=== PATIENT | female | born 1985 | race Caucasian/White ===

== ENCOUNTER 2020-07-11 19:17 | Emergency (ER) | payer MEDICAID, OTHER ==
[2020-07-11] MEDS ORDERED: Sodium Chloride 0.9% 1,000 ML IV ONE ×2 (21:44→22:45)
[2020-07-11 22:07] LABS: BLOOD UREA NITROGEN,BUN 7 mg/dL (7.0-18.0); CARBON DIOXIDE,CO2 22.4 mmol/L (21.0-32.0); CHLORIDE,CL 100 mmol/L (98-107); GLUCOSE RANDOM 90 mg/dL (74-106); LIPASE 66 U/L (73-393); POTASSIUM,K 3.3 mmol/L (3.5-5.1); SODIUM,NA 136 mmol/L (136-145)
[2020-07-11] MEDS ORDERED: Ondansetron 4 MG/2 ML SDV IVPUSH ONE (22:45)
[2020-07-11] MEDS ORDERED: Acetaminophen 500 MG Tab PO ONE (22:45)
--- NOTE | 2020-07-11 23:02 | EDM.PDOC ---
ED HPI GENERAL MEDICAL PROBLEM - General Chief Complaint: Fever Stated Complaint: 10 WKS , FEVER, NAUSEA Time Seen by Provider: 07/11/20 21:35 Source of Information: Reports: Patient History Limitations: Reports: No Limitations - History of Present Illness INITIAL COMMENTS - FREE TEXT/NARRATIVE: HISTORY AND PHYSICAL: History of present illness: Sarabjit is a 34-year-old female who presents to the ED today with concern of generalized body aches, vomiting, low-grade fever of 99-100 at home, headache, and cough. Patient states she is approximately 10 weeks in gestation with a twin confirmed IUP with her OBGYN, Dr. Cordoba, at [facility]. Patient states that she took 1 g of Tylenol 5 hours prior to arrival to the ED but states that she vomited shortly after taking this. Patient states the generalized body aches is her main complaint and most bothersome to her. Patient states she is concerned about a COVID infection. Denies any vaginal bleeding, vaginal discharge. States she is having some lower abdominal pain which she is unsure if related to vomiting. Denies hematemesis or bilious emesis. Patient denies chest pain, shortness of breath, or cough. Denies neck stiff ness, change in vision, syncope, or near syncope. Denies abdominal pain, diarrhea, constipation, or dysuria. Has not noted any blood in urine or stool. Review of systems: As per history of present illness and below otherwise all systems reviewed and negative. Past medical history: As per history of present illness and as reviewed below otherwise noncontribut ory. Surgical history: As per history of present illness and as reviewed below otherwise noncontributory. Social history: See social history for further information Family history: As per history of present illness and as reviewed below otherwise noncontributory. Physical exam: General: Patient is alert, oriented, and in no acute distress. Patient sitting comfortably on exam table but anxious and tired appearing. Vitals stable with mild tachycardia without hypoxia. HEENT: Atraumatic, normocephalic, pupils equal and reactive bilaterally, negative for conjunctival pallor or scleral icterus, mucous membranes dry, throat clear, neck supple, nontender, trachea midline. No drooling or trismus noted. No meningeal signs. No hot potato voice noted. Lungs: Patient speaking clearly without breathlessness, no wheezing or stridor, no accessory muscle use or respiratory distress. Auscultation deferred due to current COV-ID 19 outbreak. Heart: Auscultation deferred due to current COV-ID 19 outbreak. Tachycardia on exam 110. Abdomen: Soft, nondistended, mild lower abdominal tenderness without guarding or rebound. Negative for masses or hepatosplenomegaly. Negative for costovertebral tenderness. Pelvis: Stable nontender. Genitourinary: Deferred. Rectal: Deferred. Skin: Intact, warm, dry. No lesions or rashes noted. Extremities: Atraumatic, negative for cords or calf pain. Neurovascular unremarkable. Neuro: Awake, alert, oriented. Cranial nerves II through XII unremarkable. Cerebellum unremarkable. Motor and sensory unremarkable throughout. Exam nonfocal. Notes: Patient is quite anxious on exam about positive COVID infection and concerned for her twin with concurrent COVID infection. She has not had any episodes of vomiting in the ED but expresses nausea and will evaluate for tolerance of PO intake following completion of therapeutics. Dr. Johnston has assumed care of patient at 23:00 pending ultrasound and reevaluation following therapeutics. He will follow remaining diagnostics and disposition for patient. Diagnostics: CBC, CMP, UA w culture, COVID-19, lipase, TVUS Therapeutics: NS, Zofran, Tylenol Impression: COVID-19 infection Intrauterine twin Vomiting Dehydration Plan: Definitive disposition and diagnosis as appropriate pending reevaluation and review of above. abdominal, body aches Pain Score (Numeric/FACES): 5 - Related Data Allergies Allergy/AdvReac Type Severity Reaction Status Date / Time azithromycin Allergy Nausea Verified 07/11/20 19:37 clindamycin Allergy Hives Verified 07/11/20 19:37 Penicillins Allergy Hives Verified 07/11/20 19:37 Home Meds: Home Meds No122/Iron/Folic Acid [ Multi Tablet] 1 each PO DAILY 06/16/17 [History] Past Medical History HEENT History: Reports: Impaired Vision Cardiovascular History: Reports: Other (See Below) Other Cardiovascular History: Tricupsid valve leaking 2016. Gastrointestinal History: Reports: Other (See Below) Other Gastrointestinal History: History of C-Diff. 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 - Infectious Disease History Infectious Disease History: Reports: Chicken Pox - Past Surgical History HEENT Surgical History: Reports: Oral Surgery Female Surgical History: Reports: D&C, Other (See Below) Other Female Surgeries/Procedures: Hysteroscopic uterine septoplasty in 2016. Musculoskeletal Surgical History: Reports: None Social & Family History - Family History HEENT: Reports: Hearing Impairment, Impaired Vision Cardiac: Reports: Bypass, Cardiomyopathy, High Cholesterol, Hypertension, Pa cemaker Respiratory: Reports: COPD GI: Reports: Celiac Disease, Other (See Below) Other GI Family History: C-diff. OBGYN: Reports: Musculoskeletal: Reports: Arthritis, Fibromyalgia Neurological: Reports: Neuropathy, Peripheral Endocrine/Metabolic: Reports: Hypothyroidism, Other (See Below) Other Endocrine/Metabolic Family History: Hoshimotos. - Tobacco Use Smoking Status *Q: Never Smoker - Caffeine Use Caffeine Use: Reports: Soda - Recreational Drug Use Recreational Drug Use: No ED ROS GENERAL - Review of Systems Review Of Systems: Comprehensive ROS is negative, except as noted in HPI. ED EXAM, GENERAL - Physical Exam Exam: See Below (see dictation) Course - Vital Signs Last Recorded V/S: Last Vital Signs Temp 98.9 F 07/12/20 00:51 Pulse 95 07/12/20 02:23 Resp 17 07/12/20 02:23 BP 122/71 07/12/20 02:23 Pulse Ox 98 07/12/20 02:23 - Orders/Labs/Meds Orders: Active Orders 24 hr Category Date Time Status CORONAVIRUS COVID-19 PCR PHL Stat Lab 07/11/20 21:43 Received Labs: Laboratory Tests 07/11/20 07/11/20 07/11/20 Range/Units 21:26 21:26 21:43 WBC 8.29 (4.0-11.0) K/uL RBC 4.92 (4.30-5.90) M/uL Hgb 14.2 (12.0-16.0) g/dL Hct 40.8 (36.0-46.0) % MCV 82.9 (80.0-98.0) fL MCH 28.9 (27.0-32.0) pg MCHC 34.8 (31.0-37.0) g/dL RDW Std Deviation 37.5 (28.0-62.0) fl RDW Coeff of Cherry 13 (11.0-15.0) % Plt Count 170 (150-400) K/uL MPV 10.50 (7.40-12.00) fL Neut % (Auto) 87.2 H (48.0-80.0) % Lymph % (Auto) 4.7 L (16.0-40.0) % Pope % (Auto) 7.7 (0.0-15.0) % Eos % (Auto) 0.2 (0.0-7.0) % Baso % (Auto) 0.2 (0.0-1.5) % Neut # (Auto) 7.2 H (1.4-5.7) K/uL Lymph # (Auto) 0.4 L (0.6-2.4) K/uL Pope # (Auto) 0.6 (0.0-0.8) K/uL Eos # (Auto) 0.0 (0.0-0.7) K/uL Baso # (Auto) 0.0 (0.0-0.1) K/uL Nucleated RBC % 0.0 /100WBC Nucleated RBCs # 0 K/uL Sodium 136 (136-145) mmol/L Potassium 3.3 L (3.5-5.1) mmol/L Chloride 100 (98-107) mmol/L Carbon Dioxide 22.4 (21.0-32.0) mmol/L BUN 7 (7.0-18.0) mg/dL Creatinine 0.8 (0.6-1.0) mg/dL Est Cr Clr Drug Dosing 113.27 mL/min Estimated GFR (MDRD) > 60.0 ml/min Glucose 90 (74-106) mg/dL Calcium 8.9 (8.5-10.1) mg/dL Total Bilirubin 0.3 (0.2-1.0) mg/dL AST 42 H (15-37) IU/L ALT 56 (14-63) IU/L Alkaline Phosphatase 88 (46-116) U/L Total Protein 7.8 (6.4-8.2) g/dL Albumin 3.5 (3.4-5.0) g/dL Globulin 4.3 H (2.6-4.0) g/dL Albumin/Globulin Ratio 0.8 L (0.9-1.6) Lipase 66 L (73-393) U/L Urine Color Urine Appearance Urine pH (5.0-8.0) Ur Specific Elberfeld (1.001-1.035) Urine Protein (NEGATIVE) mg/dL Urine Glucose (UA) (NEGATIVE) mg/dL Urine Ketones (NEGATIVE) mg/dL Urine Occult Blood (NEGATIVE) Urine Nitrite (NEGATIVE) Urine Bilirubin (NEGATIVE) Urine Urobilinogen (<2.0) EU/dL Ur Leukocyte Esterase (NEGATIVE) Urine RBC (0-2/HPF) Urine WBC (0-5/HPF) Ur Epithelial Cells (NONE-FEW) Urine Bacteria (NEGATIVE) Urine Mucus (NONE-MOD) SARS CoV-2 RNA Rapid ANGELINA POSITIVE H (NEGATIVE) 07/11/20 Range/Units 21:48 WBC (4.0-11.0) K/uL RBC (4.30-5.90) M/uL Hgb (12.0-16.0) g/dL Hct (36.0-46.0) % MCV (80.0-98.0) fL MCH (27.0-32.0) pg MCHC (31.0-37.0) g/dL RDW Std Deviation (28.0-62.0) fl RDW Coeff of Cherry (11.0-15.0) % Plt Count (150-400) K/uL MPV (7.40-12.00) fL Neut % (Auto) (48.0-80.0) % Lymph % (Auto) (16.0-40.0) % Pope % (Auto) (0.0-15.0) % Eos % (Auto) (0.0-7.0) % Baso % (Auto) (0.0-1.5) % Neut # (Auto) (1.4-5.7) K/uL Lymph # (Auto) (0.6-2.4) K/uL Pope # (Auto) (0.0-0.8) K/uL Eos # (Auto) (0.0-0.7) K/uL Baso # (Auto) (0.0-0.1) K/uL Nucleated RBC % /100WBC Nucleated RBCs # K/uL Sodium (136-145) mmol/L Potassium (3.5-5.1) mmol/L Chloride (98-107) mmol/L Carbon Dioxide (21.0-32.0) mmol/L BUN (7.0-18.0) mg/dL Creatinine (0.6-1.0) mg/dL Est Cr Clr Drug Dosing mL/min Estimated GFR (MDRD) ml/min Glucose (74-106) mg/dL Calcium (8.5-10.1) mg/dL Total Bilirubin (0.2-1.0) mg/dL AST (15-37) IU/L ALT (14-63) IU/L Alkaline Phosphatase (46-116) U/L Total Protein (6.4-8.2) g/dL Albumin (3.4-5.0) g/dL Globulin (2.6-4.0) g/dL Albumin/Globulin Ratio (0.9-1.6) Lipase (73-393) U/L Urine Color YELLOW Urine Appearance CLEAR Urine pH 6.0 (5.0-8.0) Ur Specific Elberfeld >= 1.030 (1.001-1.035) Urine Protein NEGATIVE (NEGATIVE) mg/dL Urine Glucose (UA) NEGATIVE (NEGATIVE) mg/dL Urine Ketones 15 H (NEGATIVE) mg/dL Urine Occult Blood SMALL H (NEGATIVE) Urine Nitrite NEGATIVE (NEGATIVE) Urine Bilirubin NEGATIVE (NEGATIVE) Urine Urobilinogen 0.2 (<2.0) EU/dL Ur Leukocyte Esterase NEGATIVE (NEGATIVE) Urine RBC 2-4 (0-2/HPF) Urine WBC 1-3 (0-5/HPF) Ur Epithelial Cells FEW (NONE-FEW) Urine Bacteria 1+ H (NEGATIVE) Urine Mucus MODERATE (NONE-MOD) SARS CoV-2 RNA Rapid ANGELINA (NEGATIVE) Meds: Medications Discontinued Medications Generic Name Dose Route Start Last Admin Trade Name Freq PRN Reason Stop Dose Admin Acetaminophen 1,000 mg 07/11/20 22:45 07/11/20 22:50 Tylenol Extra Strength PO 07/11/20 22:46 1,000 mg ONETIME ONE Administration Acetaminophen 1,000 mg 07/12/20 03:05 07/12/20 03:28 Tylenol Extra Strength PO 07/12/20 03:06 1,000 mg ONETIME ONE Administration Sodium Chloride 1,000 mls @ 999 mls/hr 10/05/20 21:44 07/11/20 21:50 Normal Saline IV 07/11/20 22:44 999 mls/hr BOLUS ONE Administration Sodium Chloride 1,000 mls @ 999 mls/hr 07/11/20 22:45 07/11/20 22:50 Normal Saline IV 07/11/20 23:45 999 mls/hr STAT ONE Administration Ondansetron HCl 4 mg 07/11/20 22:45 07/11/20 22:51 Zofran IVPUSH 07/11/20 22:46 4 mg ONETIME ONE Administration Ondansetron HCl 4 mg 07/12/20 01:40 07/12/20 02:06 Zofran IVPUSH 07/12/20 01:41 4 mg ONETIME ONE Administration Ondansetron HCl Confirm 07/12/20 03:16 Zofran Odt Administered 07/12/20 03:17 Dose 8 mg .ROUTE .STK-MED ONE Departure - Departure Time of Disposition: 23:01 Disposition: DC/Tfer to [facility] 02 Clinical Impression: COVID-19, Intrauterine , Dehydration Vomiting Qualifiers: Vomiting type: unspecified Vomiting Intractability: unspecified Nausea presence: with nausea Qualified Code(s): R11.2 - Nausea with vomiting, unspecified - Discharge Information Referrals: PCP,Not In Area [Ordering Only Provider] - Forms: ED Department Discharge Additional Instructions: The following information is given to patients seen in the emergency department who are being discharged to home. This information is to outline your options for follow-up care. We provide all patients seen in our emergency department with a follow-up referral. The need for follow-up, as well as the timing and circumstances, are variable depending upon the specifics of your emergency department visit. If you don't have a primary care physician on staff, we will provide you with a referral. We always advise you to contact your personal physician following an emergency department visit to inform them of the circumstance of the visit and for follow-up with them and/or the need for any referrals to a consulting specialist. The emergency department will also refer you to a specialist when appropriate. This referral assures that you have the opportunity for follow-up care with a specialist. All of these measure are taken in an effort to provide you with optimal care, which includes your follow-up. Under all circumstances we always encourage you to contact your private physician who remains a resource for coordinating your care. When calling for follow-up care, please make the office aware that this follow-up is from your recent emergency room visit. If for any reason you are refused follow-up, please contact the [facility] Emergency Department at and asked to speak to the emergency department charge nurse. [facility] [address] [place] [address] [facility] [address] [place] [address] [facility] [address] [place] [address] 1. Your COVID-19 screening is positive. That means you do have the coronavirus and are considered contagious. Your vital signs and oxygen saturation are well enough that you were able to monitor your symptoms at home. Continue to monitor for trouble breathing, new confusion or inability to arouse, bluish lips or face or any of the other symptoms we discussed -if this occurs please return to the emergency room. 2. Please self quarantine over the next 2 weeks. Inform any persons that you have been in contact with since you started becoming symptomatic that you have tested positive; they should be made aware and take the appropriate steps as nee ded. 3. Take the medications as we prescribed as discussed. 4. You may take Tylenol as needed for pain and fever management. 5. The [facility] department will be calling you and following up with you. [facility] COVID 19 Hotline phone number , They are open Saturday - Saturday 7am - 7pm. Follow up with your primary care provider for re-evaluation and re-testing after the 2 week quarantine and discuss when you should be seen. Sepsis Event Note (ED) - Evaluation Sepsis Screening Result: Possible Sepsis Risk - Focused Exam Vital Signs: Vital Signs Temp Temp Pulse Resp BP Pulse Ox 10/06/20 02:23 95 17 122/71 98 07/12/20 02:14 102 H 16 125/84 97 07/12/20 00:51 98.9 F 98 18 110/52 L 96 07/11/20 23:20 98.9 F 07/11/20 22:50 99.1 F 07/11/20 22:22 109 H 18 97/65 99 - My Orders Last 24 Hours: My Active Orders 07/11/20 21:43 CORONAVIRUS COVID-19 PCR PHL Stat - Assessment/Plan Last 24 Hours: My Active Orders 07/11/20 21:43 CORONAVIRUS COVID-19 PCR PHL Stat
--- NOTE | 2020-07-12 01:04 | US ---
INDICATION: First trimester scan, maternal fever and abdominal pain. COMPARISON: None. TECHNIQUE: 2D liao-scale imaging of the pelvis was performed. FINDINGS: Sonographic imaging demonstrates a living dichorionic diamniotic twin gestation. Twin a has a crown rump length measurement 3.1 cm correlating with a 10 week gestation. Twin a demonstrates a cardiac rate 182 beats per minute. Twin B has a crown-rump length measurement of 2.9 cm correlating with a 9 week 6 day gestation. Twin B has a cardiac rate of 179 beats per minute. There is no evidence of a marginal hemorrhage. The cervix is closed. The myometrium appears normal. The ovaries are of normal size. There are no suspicious fluid collections noted in the cul-de-sac. There are no suspect adnexal masses. IMPRESSION: Normal twin first trimester OB ultrasound exam. Gestational age calculated at 10 weeks with a sonographic due date of 02/07/2021. Dictated by Manjinder Sellers MD @ Jul 13 2020 9:05AM Signed by Dr. Manjinder Sellers @ Jul 13 2020 9:13AM
[2020-07-12] MEDS ORDERED: Ondansetron 4 MG/2 ML SDV IVPUSH ONE (01:40)
--- NOTE | 2020-07-12 02:40 | PCM.SN.2 ---
- Free Text/Narrative Note: Patient was signed out from JULIETTE Henao pending Ultrasound and reevaluation. This is a 34-year-old woman with a past medical history of at approximately 10 weeks gestation a diagnosis of coronavirus today. I did reevaluate the patient. The patient stated that she started having body aches, mild cough, and vomiting today. She states that the abdominal pain is throughout her abdomen. She denies any bilious emesis or hematemesis. She denies any diarrhea. She denies any pain with urination. On examination the patient appears ill and dehydrated. Her abdomen was soft, diffusely tender to palpation without any rebound or guarding. Vitals were stable at this time with no signs of hypoxia. The radiological images were viewed by myself along with reading the report from the radiologist. First trimester ultrasound preliminary impression reveals a di-chorionic diamniotic twin with fetus a having a heart rate of 182 and fetus B of a heart rate of 179. On reevaluation, the patient was unable to tolerate p.o. The patient still appeared ill. At this time the patient has received antiemetics and 2 L of IV fluid. At this time I did discuss with her that I would like to admit her given her high risk and her being COVID positive and inability to tolerate p.o. She was amenable to this plan. Unfortunately, there are no coronavirus positive beds at our institution. I did contact multiple institutions including [facility] and [facility] in [place], and all of these institutions do not have coronavirus beds either. Therefore I contacted [facility] at [place] and I spoke with Dr. Troy who accepted the transfer. The patient will be transferred via ambulance. DISPOSITION: The patient was transferred to [facility] in [facility] CONDITION: Fair PROCEDURES: None FINAL IMPRESSION(S)/DIAGNOSES: 1. Acute intractable vomiting secondary to coronavirus versus hyperemesis gravidarum 2. Dichorionic diamniotic twin gestation Crispin Johnston M.D.
[2020-07-12] MEDS ORDERED: Acetaminophen 500 MG Tab PO ONE (03:05)
[2020-07-12] MEDS ORDERED: Ondansetron 4 MG Tab.DIS ONE (03:16)
[2020-07-12 03:53] VITALS: BP 122/71; PULSE 95
== END 2020-07-12 03:30 ==
LOC: MW.ED 19:17
DX: O98.511 Other viral diseases complicating pregnancy, first trimester (principal); U07.1 COVID-19; O99.281 Endocrine, nutritional and metabolic diseases complicating pregnancy, first trimester; E86.0 Dehydration; O21.9 Vomiting of pregnancy, unspecified; O30.001 Twin pregnancy, unspecified number of placenta and unspecified number of amniotic sacs, first trimester; Z88.1 Allergy status to other antibiotic agents; Z88.0 Allergy status to penicillin; Z3A.10 10 weeks gestation of pregnancy
CPT/HCPCS: 36415; 76801; 80053; 81001; 83690; 85025; 87635; 96361; 96374; 96376; 99285; A9270; J2405; J7030; 99283; U0002

== ENCOUNTER 2020-12-04 17:55 | Observation (INO) | payer MEDICAID ==
[2020-12-04] MEDS ORDERED: Lactated Ringers 1,000 ML IV ONE (18:23)
[2020-12-04] MEDS ORDERED: diphenhydrAMINE 25 MG Cap PO ONE (18:50)
--- NOTE | 2020-12-04 19:18 | PCM.LDHP ---
<Gardenia Singleton - Last Filed: 12/04/20 20:59> L&D History of Present Illness - General Date of Service: 12/04/20 Admit Problem/Dx: Patient Status Order with Admit Dx/Problem 12/04/20 17:50 Patient Status [ADT] Routine Admission Diagnosis/Problem Admission Diagnosis/Problem Source of Information: Patient History Limitations: Reports: No Limitations - History of Present Illness Introduction:: 35 year old at 30+6 (EDC 02/06/21 by 1st trimester u/s) weeks gestation of di/di twins complicated by GDMA1 and COVID 1st trimester, PMH significant for preeclampsia prior . Patient contacted on-call OBGYN provider today due to headache 5/10 with visual disturbance not alleviated by tylenol 500 x1, nausea/vomiting, and dysphoria. Also has complaints of epigastric, intermittent, squeezing abdominal pain x 2-3 days. Has had significant itching of palms and soles. No dysuria, not discolored/malodorous. Does have complaints of constipation; last bowel movement last evening, was small and hard. Last normal has been >1 week. Has tried Colace past couple days with no benefit. Patient presented to ED in [place], [place] for evaluation and blood pressure check. Blood pressures were normotensive and other vitals within normal limits. heart tones 120's for both fetuses. Labs normal aside from noted below. Labs: -CMP notable for: * AST - 424 * ALT - 650 -UA: * Trace ketones * 3+ bacteria * Negative nitrites/leukocyte esterase/protein -FAST exam - normal appearing GB without stones/wall thickening, OB with 2 fetuses both with good movement -POC glucose - 105 Upon arrival to [place] [facility] patient reports continued headache, epigastric pain. Reports good movement. Denies leaking fluid or vaginal bleeding. - Related Data Allergies/Adverse Reactions: Allergies Allergy/AdvReac Type Severity Reaction Status Date / Time azithromycin Allergy Nausea Verified 07/11/20 19:37 clindamycin Allergy Hives Verified 07/11/20 19:37 Penicillins Allergy Hives Verified 07/11/20 19:37 Home Medications: Home Meds No122/Iron/Folic Acid [ Multi Tablet] 1 each PO BEDTIME 06/16/17 [History] Acetaminophen [Tylenol] 325 - 650 mg PO PRN 12/04/20 [History] Aspirin [Aleah Chewable Aspirin] 2 tab CHEW DAILY 12/04/20 [History] Past Medical History HEENT History: Reports: Impaired Vision Cardiovascular History: Reports: Other (See Below) (Mild mitral/tricuspid regurgitation - ECHO 2017) Other Cardiovascular History: Tricupsid valve leaking 2017. Gastrointestinal History: Reports: None, Other (See Below) Other Gastrointestinal History: History of C-Diff. 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 Endocrine/Metabolic History: Reports: Diabetes, Gestational - Infectious Disease History Infectious Disease History: Reports: Chicken Pox, Novel Coronavirus (Hospitalized in [place] x 4 days in first trimester) - Past Surgical History HEENT Surgical History: Reports: Oral Surgery Female Surgical History: Reports: D&C, Other (See Below) (Uterine resection s urgery 2015) Other Female Surgeries/Procedures: Hysteroscopic uterine septoplasty in 2016. Musculoskeletal Surgical History: Reports: None Social & Family History - Family History Family Medical History: No Pertinent Family History HEENT: Reports: Hearing Impairment, Impaired Vision Cardiac: Reports: Bypass, Cardiomyopathy (sister pp cardiomyopathy/heart failure), High Cholesterol, Hypertension, Pacemaker Respiratory: Reports: COPD GI: Reports: Celiac Disease, Other (See Below) Other GI Family History: C-diff. OBGYN: Reports: Musculoskeletal: Reports: Arthritis, Fibromyalgia Neurological: Reports: Neuropathy, Peripheral Endocrine/Metabolic: Reports: Hypothyroidism, Other (See Below) Other Endocrine/Metabolic Family History: Andrew. - Caffeine Use Caffeine Use: Reports: Soda - Living Situation & Occupation Living situation: Reports: (Recently found out about infedelity with spouse) H&P Review of Systems - Review of Systems: Review Of Systems: See Below General: Reports: Decreased Appetite HEENT: Reports: Visual Changes Pulmonary: Reports: No Symptoms Cardiovascular: Reports: No Symptoms Gastrointestinal: Reports: Abdominal Pain, Constipation, Decreased Appetite, Nausea, Vomiting Genitourinary: Reports: No Symptoms Musculoskeletal: Reports: No Symptoms Skin: Reports: No Symptoms Neurological: Reports: Headache L&D Exam - Exam Exam: See Below - Vital Signs Weight: 183 lb - OB Specific Contraction Intensity: Irritability Movement: Active Heart Tones: Present Heart Tones per Min: 130 Heart Rate (FHR) Variability: Moderate (6-25 bmp) - Perrin Score Perrin Score Cervix Position: Posterior Perrin Score Consistency: Firm Perrin Score Effacement: 0-30% Perrin Score Dilation: Closed Perrin Score 's Station: -3 Perrin Score Total: 0 - Exam General: Alert, Oriented Lungs: Clear to Auscultation, Normal Respiratory Effort Cardiovascular: Regular Rate, Regular Rhythm GI/Abdominal Exam: Soft, Tender (Epigastric & LUQ) Genitourinary: Normal external exam, Normal bimanual exam, Normal speculum exam Back Exam: Normal Inspection, Full Range of Motion Extremities: Normal Inspection, Normal Range of Motion, Non-Tender, No Pedal Edema Skin: Warm, Dry, Intact Neurological: Reflexes Equal Bilateral, Other (no clonus) DTR: 2+: Patella (L), Patella (R) Psychiatric: Anxious - Patient Data Result Diagrams: 12/04/20 18:54 12/04/20 18:54 Problem List Initiated/Reviewed/Updated: Yes Orders Last 24hrs: Active Orders 24 hr Category Date Time Status Patient Status [ADT] Routine ADT 12/04/20 17:50 Active Non Stress Test [RC] PER UNIT ROUTINE Care 12/04/20 18:11 Active Up ad Becca [RC] ASDIRECTED Care 12/04/20 18:11 Active Vital Signs [RC] PER UNIT ROUTINE Care 12/04/20 18:11 Active Abdomen Ltd [US] Stat Exams 12/04/20 18:24 Ordered AMYLASE [CHEM] Routine Lab 12/04/20 18:19 Ordered CBC W/O DIFF,HEMOGRAM [HEME] Routine Lab 12/04/20 18:19 Ordered COMPREHENSIVE METABOLIC PN,CMP [CHEM] Routine Lab 12/04/20 18:19 Ordered HEPATITIS PANEL (4) [REF] Routine Lab 12/04/20 18:19 Ordered LIPASE [CHEM] Routine Lab 12/04/20 18:19 Ordered UA W/O MICROSCOPIC [URIN] Routine Lab 12/04/20 18:30 Ordered Lactated Ringers [Ringers, Lactated] 1,000 ml Med 12/04/20 18:23 Active IV .BOLUS diphenhydrAMINE [Benadryl] Med 12/04/20 18:50 Once 25 mg PO ONETIME ONE Resuscitation Status Routine Resus Stat 12/04/20 18:10 Ordered Medication Orders Diphenhydramine HCl (Benadryl) 25 mg PO ONETIME ONE Stop: 12/04/20 18:51 Lactated Ringer's (Ringers, Lactated) 1,000 mls @ 999 mls/hr IV .BOLUS ONE Stop: 12/04/20 19:23 Assessment/Plan Comment:: 35 year old at 30+6 weeks gestation with di/di twin gestation. Elevated transaminases * Labs: CMP, CBC, lipase, amylase, hepatitis panel, UA * RUQ/epigastric u/s ordered * Liter IV fluids ordered * Magnesium ordered Headache * No relief with tylenol - will avoid tylenol from here on out due to elevated LFTs * Oral benadryl ordered for pain Pelvic pain * U/s ordered as above * PO benadryl ordered for pain * Affirm and GC collected Heartburn * IV pantoprazole ordered * Zofran ordered intrauterine * O negative, rubella immune * NST * Fetus A - moderate variability, reactive, baseline 130's * Fetus B - moderate variability, reactive, baseline 130's * GBS collected * Betamethasone ordered * [facility] consult Dr. Boland - recommended LDH and transfer to higher level of care. Plan transfer via flight to [place]. <Radha Ellison M - Last Filed: 12/04/20 21:09> L&D History of Present Illness - General Admit Problem/Dx: Patient Status Order with Admit Dx/Problem 12/04/20 17:50 Patient Status [ADT] Routine Admission Diagnosis/Problem Admission Diagnosis/Problem - Patient Data Lab Results Last 24 hrs: Laboratory Results - last 24 hr 12/04/20 12/04/20 12/04/20 Range/Units 18:30 18:30 18:54 WBC 11.32 H (4.0-11.0) K/uL RBC 4.02 L (4.30-5.90) M/uL Hgb 10.7 L (12.0-16.0) g/dL Hct 32.8 L (36.0-46.0) % MCV 81.6 (80.0-98.0) fL MCH 26.6 L (27.0-32.0) pg MCHC 32.6 (31.0-37.0) g/dL RDW Std Deviation 38.1 (28.0-62.0) fl RDW Coeff of Cherry 13 (11.0-15.0) % Plt Count 179 (150-400) K/uL MPV 11.80 (7.40-12.00) fL Nucleated RBC % 0.0 /100WBC Nucleated RBCs # 0 K/uL INR APTT (18.6-31.3) SEC Sodium (136-145) mmol/L Potassium (3.5-5.1) mmol/L Chloride (98-107) mmol/L Carbon Dioxide (21.0-32.0) mmol/L BUN (7.0-18.0) mg/dL Creatinine (0.6-1.0) mg/dL Est Cr Clr Drug Dosing mL/min Estimated GFR (MDRD) ml/min Glucose (74-106) mg/dL Calcium (8.5-10.1) mg/dL Total Bilirubin (0.2-1.0) mg/dL AST (15-37) IU/L ALT (14-63) IU/L Alkaline Phosphatase (46-116) U/L Total Protein (6.4-8.2) g/dL Albumin (3.4-5.0) g/dL Globulin (2.6-4.0) g/dL Albumin/Globulin Ratio (0.9-1.6) Amylase (25-115) U/L Lipase (73-393) U/L Urine Color YELLOW Urine Appearance CLEAR Urine pH 6.0 (5.0-8.0) Ur Specific [place] 1.015 (1.001-1.035) Urine Protein NEGATIVE (NEGATIVE) mg/dL Urine Glucose (UA) NEGATIVE (NEGATIVE) mg/dL Urine Ketones 40 H (NEGATIVE) mg/dL Urine Occult Blood NEGATIVE (NEGATIVE) Urine Nitrite NEGATIVE (NEGATIVE) Urine Bilirubin NEGATIVE (NEGATIVE) Urine Urobilinogen 0.2 (<2.0) EU/dL Ur Leukocyte Esterase NEGATIVE (NEGATIVE) Ur Random Creatinine 56.3 mg/dL U Random Total Protein 28.3 H (<11.9) mg/dL Protein/Creatinin Ratio 0.5 12/04/20 12/04/20 Range/Units 18:54 20:25 WBC (4.0-11.0) K/uL RBC (4.30-5.90) M/uL Hgb (12.0-16.0) g/dL Hct (36.0-46.0) % MCV (80.0-98.0) fL MCH (27.0-32.0) pg MCHC (31.0-37.0) g/dL RDW Std Deviation (28.0-62.0) fl RDW Coeff of Cherry (11.0-15.0) % Plt Count (150-400) K/uL MPV (7.40-12.00) fL Nucleated RBC % /100WBC Nucleated RBCs # K/uL INR 0.93 APTT 25.1 (18.6-31.3) SEC Sodium 137 (136-145) mmol/L Potassium 3.7 (3.5-5.1) mmol/L Chloride 102 (98-107) mmol/L Carbon Dioxide 19.8 L (21.0-32.0) mmol/L BUN 10 (7.0-18.0) mg/dL Creatinine 0.7 (0.6-1.0) mg/dL Est Cr Clr Drug Dosing 128.21 mL/min Estimated GFR (MDRD) > 60.0 ml/min Glucose 89 (74-106) mg/dL Calcium 8.8 (8.5-10.1) mg/dL Total Bilirubin 0.6 (0.2-1.0) mg/dL AST 514 H (15-37) IU/L ALT 784 H (14-63) IU/L Alkaline Phosphatase 208 H (46-116) U/L Total Protein 6.9 (6.4-8.2) g/dL Albumin 2.1 L (3.4-5.0) g/dL Globulin 4.8 H (2.6-4.0) g/dL Albumin/Globulin Ratio 0.4 L (0.9-1.6) Amylase 55 (25-115) U/L Lipase 204 (73-393) U/L Urine Color Urine Appearance Urine pH (5.0-8.0) Ur Specific Paul[place] (1.001-1.035) Urine Protein (NEGATIVE) mg/dL Urine Glucose (UA) (NEGATIVE) mg/dL Urine Ketones (NEGATIVE) mg/dL Urine Occult Blood (NEGATIVE) Urine Nitrite (NEGATIVE) Urine Bilirubin (NEGATIVE) Urine Urobilinogen (<2.0) EU/dL Ur Leukocyte Esterase (NEGATIVE) Ur Random Creatinine mg/dL U Random Total Protein (<11.9) mg/dL Protein/Creatinin Ratio Result Diagrams: 12/04/20 18:54 12/04/20 18:54 Orders Last 24hrs: Active Orders 24 hr Category Date Time Status Patient Status [ADT] Routine ADT 12/04/20 17:50 Active Bedrest [RC] ASDIRECTED Care 12/04/20 20:41 Active Communication Order [RC] PRN Care 12/04/20 20:41 Active Communication Order [RC] PRN Care 12/04/20 20:41 Active Equipment to Bedside [RC] PRN Care 12/04/20 20:50 Active Heart Tones [RC] ASDIRECTED Care 12/04/20 20:45 Active Non Stress Test [RC] PER UNIT ROUTINE Care 12/04/20 18:11 Active Height and Weight [RC] DAILY Care 12/04/20 20:41 Active Intake and Output [RC] QSHIFT Care 12/04/20 20:41 Active Notify Provider Status Change [RC] ASDIRECTED Care 12/04/20 20:50 Active Notify Provider [RC] PRN Care 12/04/20 20:41 Active Oxygen Therapy [RC] PRN Care 12/04/20 20:41 Active Up ad Becca [RC] ASDIRECTED Care 12/04/20 18:11 Active Vital Signs [RC] PER UNIT ROUTINE Care 12/04/20 18:11 Active AMMONIA VENOUS [CHEM] Routine Lab 12/04/20 20:25 Received HEPATITIS PANEL (4) [REF] Routine Lab 12/04/20 18:54 Received LACTATE DEHYDROGENASE,LDH [CHEM] Routine Lab 12/04/20 20:25 Received MAGNESIUM [CHEM] Q6H Lab 12/04/20 20:41 Ordered MAGNESIUM [CHEM] Q6H Lab 12/05/20 02:45 Ordered MAGNESIUM [CHEM] Q6H Lab 12/05/20 08:45 Ordered MAGNESIUM [CHEM] Q6H Lab 12/05/20 14:45 Ordered MAGNESIUM [CHEM] Q6H Lab 12/05/20 20:45 Ordered TYPE AND SCREEN [BBK] Routine Lab 12/04/20 20:41 Ordered URIC ACID [CHEM] Routine Lab 12/04/20 20:41 Ordered Calcium Gluconate Med 12/04/20 20:41 Active 1 gm IV ASDIRECTED PRN Magnesium Sulfate/Water [Magnesium Sulfate in Water 20 Med 12/04/20 20:45 Active GM/500 ML] 20 gm in 500 ml IV ASDIRECTED Ondansetron [Zofran] Med 12/04/20 19:44 Active 4 mg IVPUSH Q6H PRN Sodium Chloride 0.9% [Normal Saline] [facility] 12/04/20 20:41 Active 10 ml IV ASDIRECTED PRN Sodium Chloride 0.9% [Saline Flush] [facility] 12/04/20 20:41 Active 10 ml FLUSH ASDIRECTED PRN Sodium Chloride 0.9% [Saline Flush] [facility] 12/04/20 20:41 Active 2.5 ml FLUSH ASDIRECTED PRN Deep Tendon Reflexes [WOMSER] [address] 12/04/20 20:45 Ordered Deep Tendon Reflexes [WOMSER] [address] 12/04/20 21:45 Ordered Deep Tendon Reflexes [WOMSER] [address] 12/04/20 22:45 Ordered Deep Tendon Reflexes [WOMSER] [address] 12/04/20 23:45 Ordered Deep Tendon Reflexes [WOMSER] [address] 12/05/20 00:45 Ordered Deep Tendon Reflexes [WOMSER] [address] 12/05/20 01:45 Ordered Deep Tendon Reflexes [WOMSER] [address] 12/05/20 02:45 Ordered Deep Tendon Reflexes [WOMSER] [address] 12/05/20 03:45 Ordered Deep Tendon Reflexes [WOMSER] [address] 12/05/20 04:45 Ordered Deep Tendon Reflexes [WOMSER] [address] 12/05/20 05:45 Ordered Deep Tendon Reflexes [WOMSER] [address] 12/05/20 06:45 Ordered Deep Tendon Reflexes [WOMSER] [address] 12/05/20 07:45 Ordered Deep Tendon Reflexes [WOMSER] [address] 12/05/20 08:45 Ordered Deep Tendon Reflexes [WOMSER] [address] 12/05/20 09:45 Ordered Deep Tendon Reflexes [WOMSER] Q1H Ot 12/05/20 10:45 Ordered Deep Tendon Reflexes [WOMSER] Q1 Ot 12/05/20 11:45 Ordered Deep Tendon Reflexes [WOMSER] Q1 Ot 12/05/20 12:45 Ordered Deep Tendon Reflexes [WOMSER] Q1 Ot 12/05/20 13:45 Ordered Deep Tendon Reflexes [WOMSER] Q1 Ot 12/05/20 14:45 Ordered Deep Tendon Reflexes [WOMSER] Q1 Ot 12/05/20 15:45 Ordered Deep Tendon Reflexes [WOMSER] Q1 Ot 12/05/20 16:45 Ordered Deep Tendon Reflexes [WOMSER] [facility] 12/05/20 17:45 Ordered Deep Tendon Reflexes [WOMSER] Q1 Ot 12/05/20 18:45 Ordered Deep Tendon Reflexes [WOMSER] Q1[facility] 12/05/20 19:45 Ordered Electronic Heart Tones Ext w TOCO [WOMSER] Per Ot 12/04/20 20:41 Order ed Unit Routine Peripheral IV Insertion Adult [OM.PC] Routine Ot 12/04/20 20:41 Ordered Resuscitation Status Routine Resus Stat 12/04/20 18:10 Ordered Medication Orders Calcium Gluconate (Calcium Gluconate) 1 gm IV ASDIRECTED PRN PRN Reason: respiratory distress Magnesium Sulfate (Magnesium Sulfate In Water 20 Gm/500 Ml) 20 gm in 500 mls @ 50 mls/hr IV ASDIRECTED [place]; Protocol Ondansetron HCl (Zofran) 4 mg IVPUSH Q6H PRN PRN Reason: Nausea/Vomiting Sodium Chloride (Saline Flush) 10 ml FLUSH ASDIRECTED PRN PRN Reason: Keep Vein Open Sodium Chloride (Saline Flush) 2.5 ml FLUSH ASDIRECTED PRN PRN Reason: Keep Vein Open Sodium Chloride (Normal Saline) 10 ml IV ASDIRECTED PRN PRN Reason: IV Use Assessment/Plan Comment:: Discussed patient's case with staff in [place], [place]. Dr. Sharla Hirsch, OBGYN, to accept patient upon arrival. Will continue Magnesium sulfate en route to [place] for neuroprotection if delivery is indicated and for seizure prophylaxis if etiology is atypical presentation of preeclampsia.
[2020-12-04 19:25] LABS: BLOOD UREA NITROGEN,BUN 10 mg/dL (7.0-18.0); CHLORIDE,CL 102 mmol/L (98-107); GLUCOSE RANDOM 89 mg/dL (74-106); LIPASE 204 U/L (73-393); POTASSIUM,K 3.7 mmol/L (3.5-5.1); SODIUM,NA 137 mmol/L (136-145)
[2020-12-04 19:30] LABS: CARBON DIOXIDE,CO2 19.8 mmol/L (21.0-32.0)
[2020-12-04] MEDS ORDERED: Ondansetron 4 MG/2 ML SDV IVPUSH PRN (19:44)
[2020-12-04] MEDS ORDERED: Pantoprazole 40 MG in Sodium Chloride 0.9% 10 ML IV ONE (19:44)
[2020-12-04] MEDS ORDERED: Bisacodyl 10 MG Supp RECTAL ONE (19:45)
[2020-12-04] MEDS ORDERED: Betamethasone Acetate/Betamethasone Sod Phosphate 30 MG/5 ML MDV IM ONE (20:09)
--- NOTE | 2020-12-04 20:10 | US ---
HISTORY: Elevated liver enzymes. Twenty-one week twin . TECHNIQUE: Ultrasound of the right upper quadrant. COMPARISON: None. FINDINGS: Liver has normal echogenicity. No liver mass. No intrahepatic bile duct dilation. No cholelithiasis, gallbladder wall thickening, or pericholecystic fluid. Common duct measures 4 mm proximally. Distal common duct is obscured. Pancreas is not well visualized. Right kidney measures 12.4 cm long axis. Normal renal parenchymal thickness and echogenicity. Moderate right pyelocaliectasis. No renal mass. Proximal aorta measures 1.7 cm in diameter. Mid aorta measures 1.4 cm in diameter. Visualized IVC is unremarkable. IMPRESSION: 1. Right hydronephrosis, possibly physiologic related to . 2. Otherwise unremarkable ultrasound of the right upper quadrant. Normal-appearing liver. No cholelithiasis. No bile duct dilation. Dictated by Warren Clements MD @ Dec 04 2020 8:05PM Signed by Dr. Warren Clements @ Dec 04 2020 8:09PM
[2020-12-04] MEDS ORDERED: Calcium Gluconate 10% 1 GM/10 ML SDV IV PRN (20:41)
[2020-12-04] MEDS ORDERED: Sodium Chloride 0.9% 10 ML SDV IV PRN (20:41)
[2020-12-04] MEDS ORDERED: Magnesium Sulfate/Water 4 GM in Premix Bag 1 BAG IV ONE (20:41)
[2020-12-04] MEDS ORDERED: Sodium Chloride 0.9% 2.5 ML Syringe FLUSH PRN (20:41)
[2020-12-04] MEDS ORDERED: Sodium Chloride 0.9% 10 ML Syringe FLUSH PRN (20:41)
[2020-12-04] MEDS ORDERED: Magnesium Sulfate/Water 20 GM/500 ML BAG IV SCH (20:45)
[2020-12-04] MEDS ORDERED: diphenhydrAMINE 25 MG Cap ONE (21:57)
[2020-12-04] MEDS ORDERED: Pantoprazole 40 MG Tab.CR PO SCH (22:00)
[2020-12-04] MEDS ORDERED: Lidocaine 2% Jelly 30 ML Tube MUCMEM SCH (22:00)
[2020-12-06 12:08] LABS: C.TRACHOMATIS BY TMA Negative (Negative); N.GONORRHOEAE BY TMA Negative (Negative)
== END 2020-12-04 22:50 | disposition other institution (70) ==
LOC: MW.OBCHECK 17:55 → MW.OB 17:58 → MW.OBCHECK 21:26 → MW.OB 21:28
PROVIDERS: ADMIT Obstetrics & Gynecology; ATTEND Obstetrics & Gynecology
DX: O09.523 Supervision of elderly multigravida, third trimester (principal); O99.891 Other specified diseases and conditions complicating pregnancy; O30.043 Twin pregnancy, dichorionic/diamniotic, third trimester; O99.513 Diseases of the respiratory system complicating pregnancy, third trimester; O99.283 Endocrine, nutritional and metabolic diseases complicating pregnancy, third trimester; O10.913 Unspecified pre-existing hypertension complicating pregnancy, third trimester; O24.419 Gestational diabetes mellitus in pregnancy, unspecified control; R94.5 Abnormal results of liver function studies; N13.30 Unspecified hydronephrosis; E03.9 Hypothyroidism, unspecified; J44.9 Chronic obstructive pulmonary disease, unspecified; Z20.822 Contact with and (suspected) exposure to COVID-19; Z86.16 Personal history of COVID-19; Z3A.30 30 weeks gestation of pregnancy
CPT/HCPCS: 51702; 59025; 76705; 80053; 80074; 81003; 82140; 82150; 82570; 83615; 83690; 84156; 85027; 85610; 85730; 86850; 86870; 86900; 86901; 87480; 87491; 87510; 87591; 87635; 87653; 87660; 96372; 96374; 96376; A9270; G0378; J0702; J3475; J7120; 36415; U0002